=== PATIENT | female | born 1940 | race Caucasian/White ===

== ENCOUNTER 2020-03-07 15:44 | Inpatient (IN) ==
[2020-03-07 16:11] LABS: Basophils % 0.2 % (0.0-0.8); Eosinophils # 0.1 10*3/uL (0.0-0.87); Eosinophils % 0.3 % (0.00-10.9); Hematocrit 43.8 VOL% (35.7-47.0); Hemoglobin 15.7 GM/DL (12.0-16.0); Immature Granulocytes % 0.5 %; Immature Granulocytes Absolute 0.07 #; Lymphocytes # 1.9 10*3/uL (1.4-4.0); Lymphocytes % 13.5 % (21.3-54.2); Mean Corpuscular HGB Conc 35.8 GM/DL (32-36); Mean Corpuscular Volume 82.8 FL (87-102); Mean Platelet Volume 10.2 FL (9.6-12.0); Monocytes % 6.5 % (1.7-12.7); Platelet Count 261 T/CUMM (130-400); Red Blood Count 5.29 MC/CUMM (3.8-5.5); Red Cell Distribution Width 12.8 % (9.3-17.3); White Blood Count 14.4 T/CUMM (4-12)
[2020-03-07] MEDS ORDERED: LABETALOL 20 MG/4 ML SYRINGE IV STA ×2 (16:35→17:31)
[2020-03-07 16:38] LABS: Albumin 4.2 G/DL (3.4-5.0); Calcium 9.6 MG/DL (8.5-10.1); Osmolality,Calculated 260.9 MOS/KG (273-304); Total Protein 8.5 G/DL (6.4-8.3)
[2020-03-07] MEDS ORDERED: LABETALOL 20 MG/4 ML SYRINGE IV ONE ×2 (17:08→17:29)
[2020-03-07] MEDS ORDERED: POTASSIUM CHLORIDE 20 MEQ TABLET PO STA (18:14)
[2020-03-07] MEDS ORDERED: SODIUM CHLORIDE 0.9% 1,000 ML IV STA (18:33)
[2020-03-07] MEDS ORDERED: ACETAMINOPHEN 500 MG TABLET PO STA (18:40)
[2020-03-07] MEDS ORDERED: cloNIDine 0.1 MG TABLET PO STA (18:57)
[2020-03-07 19:37] LABS: Bilirubin,Urine Negative (Negative); Blood, Urine Negative (Negative); Glucose,Urine (UA) Negative (Negative); Ketones,Urine 5 mg/dL (Negative); Nitrite,Urine Negative (Negative); Protein,Urine 100 MG/DL; RBC,Urine 2 /HPF (0-4); Squamous Epithelial Cell,Urine Occasional /HPF (0-10); Urine Appearance CLEAR (Clear); Urine Color Straw (Yellow); Urine Specific Gravity 1.024 (1.001-1.035); Urine Urobilinogen < 2.0 EU/DL (0.2-1.0); WBC,Urine <1 /HPF (0-6)
[2020-03-07] MEDS ORDERED: PIPERACILLIN/TAZOBACTAM 3,375 MG in SODIUM CHLORIDE 0.9% 100 ML IV STA (19:44)
[2020-03-07] MEDS ORDERED: ZALEPLON 5 MG CAPSULE PO PRN (20:39)
[2020-03-07] MEDS ORDERED: ONDANSETRON 4 MG/2 ML VIAL IV PRN (20:39)
[2020-03-07] MEDS ORDERED: MAGNESIUM SULF RIDER 2 GM in PREMIX 1 EACH IV ONE (21:00)
[2020-03-07] MEDS ORDERED: carvediloL 25 MG TABLET PO SCH ×2 (21:00)
[2020-03-07] MEDS ORDERED: SODIUM CHLORIDE 0.9% 1,000 ML IV SCH (21:00)
[2020-03-07] MEDS ORDERED: ACETAMINOPHEN 325 MG TABLET PO PRN (21:01)
[2020-03-07] MEDS ORDERED: KETOROLAC 30 MG/1 ML VIAL IV ONE (21:01)
[2020-03-07] MEDS: SERTRALINE 50 MG TABLET PO SCH (21:48)
[2020-03-07] MEDS: MAGNESIUM CHLORIDE 64 MG TABLET PO SCH (22:02)
[2020-03-07] MEDS: POTASSIUM CHLORIDE 20 MEQ TABLET PO SCH (22:02)
[2020-03-07] MEDS: SODIUM CHLOR 0.9% KCL 20 MEQ 20 MEQ/1,000 ML BAG IV SCH (22:03)
[2020-03-08 04:14] LABS: Basophils % 0.2 % (0.0-0.8); Eosinophils # 0.2 10*3/uL (0.0-0.87); Eosinophils % 1.2 % (0.00-10.9); Hematocrit 38.1 VOL% (35.7-47.0); Hemoglobin 13.3 GM/DL (12.0-16.0); Immature Granulocytes % 0.5 %; Immature Granulocytes Absolute 0.06 #; Lymphocytes # 2.7 10*3/uL (1.4-4.0); Lymphocytes % 20.5 % (21.3-54.2); Mean Corpuscular HGB Conc 34.9 GM/DL (32-36); Mean Corpuscular Volume 84.7 FL (87-102); Mean Platelet Volume 10.2 FL (9.6-12.0); Monocytes % 9.5 % (1.7-12.7); Neutrophils % 68.1 % (38.7-73.9); Platelet Count 199 T/CUMM (130-400); Red Cell Distribution Width 12.9 % (9.3-17.3); White Blood Count 12.9 T/CUMM (4-12)
[2020-03-08 04:39] LABS: Calcium 8.7 MG/DL (8.5-10.1); Osmolality,Calculated 261.8 MOS/KG (273-304)
[2020-03-08] MEDS: PIPERACILLIN/TAZOBACTAM 3,375 MG in SODIUM CHLORIDE 0.9% 100 ML IV SCH ×3 (05:41→21:21)
[2020-03-08] MEDS: LEVOTHYROXINE 100 MCG TABLET PO SCH (06:21)
[2020-03-08] MEDS: MECLIZINE 25 MG TABLET PO SCH (08:28)
[2020-03-08] MEDS: PANTOPRAZOLE 40 MG TABLET PO SCH (08:28)
[2020-03-08] MEDS: POTASSIUM CHLORIDE 20 MEQ TABLET PO SCH ×2 (08:28→20:47)
[2020-03-08] MEDS: MULTIVITAMIN (CENTRUM) TABLET PO SCH (08:29)
[2020-03-08] MEDS: SODIUM CHLOR 0.9% KCL 20 MEQ 20 MEQ/1,000 ML BAG IV SCH ×3 (08:29→17:51)
[2020-03-08] MEDS: MAGNESIUM CHLORIDE 64 MG TABLET PO SCH ×2 (08:29→20:46)
[2020-03-08] MEDS: SPIRONOLACTONE 25 MG TABLET PO SCH (08:29)
[2020-03-08] MEDS: SERTRALINE 50 MG TABLET PO SCH (20:47)
[2020-03-09 04:50] LABS: Basophils % 0.3 % (0.0-0.8); Eosinophils # 0.4 10*3/uL (0.0-0.87); Eosinophils % 3.7 % (0.00-10.9); Hematocrit 38.9 VOL% (35.7-47.0); Hemoglobin 13.4 GM/DL (12.0-16.0); Immature Granulocytes % 0.4 %; Immature Granulocytes Absolute 0.04 #; Lymphocytes # 1.8 10*3/uL (1.4-4.0); Lymphocytes % 16.9 % (21.3-54.2); Mean Corpuscular HGB Conc 34.4 GM/DL (32-36); Mean Corpuscular Volume 86.1 FL (87-102); Mean Platelet Volume 10.6 FL (9.6-12.0); Monocytes % 6.9 % (1.7-12.7); Neutrophils % 71.8 % (38.7-73.9); Platelet Count 175 T/CUMM (130-400); Red Blood Count 4.52 MC/CUMM (3.8-5.5); Red Cell Distribution Width 13.3 % (9.3-17.3); White Blood Count 10.7 T/CUMM (4-12)
[2020-03-09] MEDS: SODIUM CHLOR 0.9% KCL 20 MEQ 20 MEQ/1,000 ML BAG IV SCH ×2 (04:55→15:07)
[2020-03-09] MEDS: LEVOTHYROXINE 100 MCG TABLET PO SCH ×2 (05:00→17:16)
[2020-03-09] MEDS: PIPERACILLIN/TAZOBACTAM 3,375 MG in SODIUM CHLORIDE 0.9% 100 ML IV SCH ×3 (05:00→21:45)
[2020-03-09 05:25] LABS: Albumin 3.2 G/DL (3.4-5.0); Bilirubin,Total 0.9 MG/DL (0.2-1.0); Calcium 8.5 MG/DL (8.5-10.1); Total Protein 7.1 G/DL (6.4-8.3)
[2020-03-09] MEDS: POTASSIUM CHLORIDE 20 MEQ TABLET PO SCH ×2 (09:50→21:44)
[2020-03-09] MEDS: PANTOPRAZOLE 40 MG TABLET PO SCH ×2 (09:50→17:17)
[2020-03-09] MEDS: SPIRONOLACTONE 25 MG TABLET PO SCH ×2 (09:50→17:17)
[2020-03-09] MEDS: MULTIVITAMIN (CENTRUM) TABLET PO SCH ×2 (09:50→17:17)
[2020-03-09] MEDS: MECLIZINE 25 MG TABLET PO SCH ×2 (09:50→17:17)
[2020-03-09] MEDS: MAGNESIUM CHLORIDE 64 MG TABLET PO SCH ×2 (09:51→21:44)
[2020-03-09] MEDS ORDERED: TISSUE ADHESIVE 1 EACH APPLICATOR TOP ONE (11:22)
[2020-03-09] MEDS ORDERED: ceFAZolin 1,000 MG VIAL ONE (12:18)
[2020-03-09] MEDS ORDERED: LIDOCAINE 2% 5 ML VIAL ONE (13:46)
[2020-03-09] MEDS ORDERED: propofoL 200 MG/20 ML VIAL IV ONE (13:46)
[2020-03-09] MEDS ORDERED: DESFLURANE 1 UNIT/15 MINUTE INH ONE (13:47)
[2020-03-09] MEDS ORDERED: fentaNYL 100 MCG/2 ML VIAL ONE (13:47)
[2020-03-09] MEDS ORDERED: ePHEDrine 50 MG/ML VIAL ONE (13:47)
[2020-03-09] MEDS ORDERED: GLYCOPYRROLATE 0.4 MG/2 ML VIAL ONE ×2 (13:47)
[2020-03-09] MEDS ORDERED: ONDANSETRON 4 MG/2 ML VIAL ONE (13:47)
[2020-03-09] MEDS ORDERED: SUCCINYLCHOLINE 200 MG/10 ML VIAL ONE (13:47)
[2020-03-09] MEDS ORDERED: NEOSTIGMINE 10 MG/10 ML VIAL ONE (13:48)
[2020-03-09] MEDS ORDERED: ONDANSETRON 4 MG/2 ML VIAL IV PRN (13:59)
[2020-03-09] MEDS ORDERED: HYDROmorphone 2 MG/1 ML VIAL IV PRN (13:59)
[2020-03-09] MEDS: ACETAMINOPHEN/CODEINE 300-30 MG TABLET PO PRN (16:01)
[2020-03-09] MEDS: lisinopriL 10 MG TABLET PO SCH (17:16)
[2020-03-09] MEDS: SERTRALINE 50 MG TABLET PO SCH (21:42)
[2020-03-10 04:51] LABS: Basophils % 0.2 % (0.0-0.8); Eosinophils % 0.1 % (0.00-10.9); Hematocrit 39.2 VOL% (35.7-47.0); Hemoglobin 13.5 GM/DL (12.0-16.0); Immature Granulocytes % 0.5 %; Immature Granulocytes Absolute 0.08 #; Lymphocytes % 5.7 % (21.3-54.2); Mean Corpuscular HGB Conc 34.4 GM/DL (32-36); Mean Corpuscular Volume 86.3 FL (87-102); Mean Platelet Volume 10.3 FL (9.6-12.0); Monocytes % 9.1 % (1.7-12.7); Neutrophils % 84.4 % (38.7-73.9); Platelet Count 201 T/CUMM (130-400); Red Blood Count 4.54 MC/CUMM (3.8-5.5); Red Cell Distribution Width 13.4 % (9.3-17.3); White Blood Count 16.6 T/CUMM (4-12)
[2020-03-10 05:09] LABS: Albumin 3.1 G/DL (3.4-5.0); Bilirubin,Total 1.1 MG/DL (0.2-1.0); Calcium 8.6 MG/DL (8.5-10.1); Osmolality,Calculated 270.2 MOS/KG (273-304)
[2020-03-10] MEDS: LEVOTHYROXINE 100 MCG TABLET PO SCH (06:40)
[2020-03-10] MEDS: PIPERACILLIN/TAZOBACTAM 3,375 MG in SODIUM CHLORIDE 0.9% 100 ML IV SCH ×3 (07:00→21:37)
[2020-03-10] MEDS: SODIUM CHLOR 0.9% KCL 20 MEQ 20 MEQ/1,000 ML BAG IV SCH ×2 (07:04→08:58)
[2020-03-10] MEDS: PANTOPRAZOLE 40 MG TABLET PO SCH (08:15)
[2020-03-10] MEDS: ACETAMINOPHEN/CODEINE 300-30 MG TABLET PO PRN ×3 (08:15→21:36)
[2020-03-10] MEDS: POTASSIUM CHLORIDE 20 MEQ TABLET PO SCH ×2 (08:15→21:38)
[2020-03-10] MEDS: lisinopriL 10 MG TABLET PO SCH (08:15)
[2020-03-10] MEDS: MULTIVITAMIN (CENTRUM) TABLET PO SCH (08:15)
[2020-03-10] MEDS: SPIRONOLACTONE 25 MG TABLET PO SCH (08:15)
[2020-03-10] MEDS: MAGNESIUM CHLORIDE 64 MG TABLET PO SCH ×2 (08:15→21:36)
[2020-03-10] MEDS: MECLIZINE 25 MG TABLET PO SCH (08:15)
[2020-03-10] MEDS ORDERED: lisinopriL 10 MG TABLET PO SCH (16:30)
[2020-03-10] MEDS: SERTRALINE 50 MG TABLET PO SCH (21:36)
[2020-03-11] MEDS: SODIUM CHLOR 0.9% KCL 20 MEQ 20 MEQ/1,000 ML BAG IV SCH ×3 (01:42→19:47)
[2020-03-11 04:00] LABS: Basophils % 0.3 % (0.0-0.8); Eosinophils # 0.2 10*3/uL (0.0-0.87); Eosinophils % 1.7 % (0.00-10.9); Hematocrit 35.1 VOL% (35.7-47.0); Hemoglobin 11.9 GM/DL (12.0-16.0); Immature Granulocytes % 0.5 %; Immature Granulocytes Absolute 0.07 #; Lymphocytes % 14.1 % (21.3-54.2); Mean Corpuscular HGB Conc 33.9 GM/DL (32-36); Mean Corpuscular Volume 88.2 FL (87-102); Mean Platelet Volume 10.3 FL (9.6-12.0); Monocytes % 9.8 % (1.7-12.7); Neutrophils % 73.6 % (38.7-73.9); Platelet Count 182 T/CUMM (130-400); Red Blood Count 3.98 MC/CUMM (3.8-5.5); Red Cell Distribution Width 13.6 % (9.3-17.3); White Blood Count 13.8 T/CUMM (4-12)
[2020-03-11 04:27] LABS: Albumin 2.8 G/DL (3.4-5.0); Bilirubin,Total 1.1 MG/DL (0.2-1.0); Calcium 8.8 MG/DL (8.5-10.1); Osmolality,Calculated 270.2 MOS/KG (273-304); Total Protein 6.6 G/DL (6.4-8.3)
[2020-03-11] MEDS: LEVOTHYROXINE 100 MCG TABLET PO SCH (05:00)
[2020-03-11] MEDS: PIPERACILLIN/TAZOBACTAM 3,375 MG in SODIUM CHLORIDE 0.9% 100 ML IV SCH ×2 (05:00→13:41)
[2020-03-11] MEDS: PANTOPRAZOLE 40 MG TABLET PO SCH (09:25)
[2020-03-11] MEDS: MULTIVITAMIN (CENTRUM) TABLET PO SCH (09:25)
[2020-03-11] MEDS: lisinopriL 5 MG TABLET PO SCH (09:25)
[2020-03-11] MEDS: MAGNESIUM CHLORIDE 64 MG TABLET PO SCH ×2 (09:25→21:22)
[2020-03-11] MEDS: POTASSIUM CHLORIDE 20 MEQ TABLET PO SCH ×2 (09:25→21:22)
[2020-03-11] MEDS: MECLIZINE 25 MG TABLET PO SCH (09:25)
[2020-03-11] MEDS: SPIRONOLACTONE 25 MG TABLET PO SCH (09:25)
[2020-03-11] MEDS: ACETAMINOPHEN/CODEINE 300-30 MG TABLET PO PRN (21:22)
[2020-03-11] MEDS: SERTRALINE 50 MG TABLET PO SCH (21:23)
[2020-03-12] MEDS: PIPERACILLIN/TAZOBACTAM 3,375 MG in SODIUM CHLORIDE 0.9% 100 ML IV SCH ×2 (03:05→14:56)
[2020-03-12] MEDS: LEVOTHYROXINE 100 MCG TABLET PO SCH (05:58)
[2020-03-12] MEDS: SODIUM CHLOR 0.9% KCL 20 MEQ 20 MEQ/1,000 ML BAG IV SCH ×2 (07:37→14:56)
[2020-03-12 08:48] LABS: Basophils % 0.4 % (0.0-0.8); Eosinophils # 0.6 10*3/uL (0.0-0.87); Eosinophils % 5.2 % (0.00-10.9); Hematocrit 35.1 VOL% (35.7-47.0); Hemoglobin 11.9 GM/DL (12.0-16.0); Immature Granulocytes % 0.6 %; Immature Granulocytes Absolute 0.07 #; Lymphocytes # 1.3 10*3/uL (1.4-4.0); Lymphocytes % 11.6 % (21.3-54.2); Mean Corpuscular HGB Conc 33.9 GM/DL (32-36); Mean Corpuscular Volume 87.8 FL (87-102); Mean Platelet Volume 10.2 FL (9.6-12.0); Monocytes % 8.1 % (1.7-12.7); Neutrophils % 74.1 % (38.7-73.9); Platelet Count 183 T/CUMM (130-400); Red Cell Distribution Width 13.3 % (9.3-17.3); White Blood Count 11.1 T/CUMM (4-12)
[2020-03-12 09:13] LABS: Albumin 2.9 G/DL (3.4-5.0); Bilirubin,Total 0.8 MG/DL (0.2-1.0); Calcium 9.2 MG/DL (8.5-10.1); Osmolality,Calculated 267.4 MOS/KG (273-304); Total Protein 7.2 G/DL (6.4-8.3)
[2020-03-12] MEDS: SPIRONOLACTONE 25 MG TABLET PO SCH (09:54)
[2020-03-12] MEDS: POTASSIUM CHLORIDE 20 MEQ TABLET PO SCH (09:54)
[2020-03-12] MEDS: MECLIZINE 25 MG TABLET PO SCH (09:54)
[2020-03-12] MEDS: lisinopriL 5 MG TABLET PO SCH (09:55)
[2020-03-12] MEDS: MAGNESIUM CHLORIDE 64 MG TABLET PO SCH (09:55)
[2020-03-12] MEDS: PANTOPRAZOLE 40 MG TABLET PO SCH (09:55)
[2020-03-12] MEDS: MULTIVITAMIN (CENTRUM) TABLET PO SCH (09:55)
[2020-03-12 16:30] VITALS: BP 164/68
== END 2020-03-12 15:30 | disposition home health service (06) | DRG 418 ==
LOC: N.ED 15:44 → SUATTDRO 20:39 → N.EDINP 20:39 → N.CC 21:07 → N.4E 03-10 13:45
PROVIDERS: ADMIT Internal Medicine; ATTEND Internal Medicine
PROC: LAPCHOL (2020-03-09 11:47)